=== PATIENT | male | born 1995 | race Native Hawaiian/Other Pacific Islander ===

== ENCOUNTER 2018-08-07 20:04 | Emergency (ER) | payer OTHER ==
[~2018-08-07] VITALS: Ht 160 cm; Wt 52.2 kg
[2018-08-07 20:13] VITALS: BP 125/88; TEMP 98.5
== END 2018-08-07 22:18 | disposition home or self-care (01) ==
LOC: ED 20:04
DX: K08.89 Other specified disorders of teeth and supporting structures (principal)
CPT/HCPCS: 99281

== ENCOUNTER 2018-09-09 16:54 | Emergency (ER) | payer OTHER ==
[~2018-09-09] VITALS: Ht 160 cm; Wt 52.2 kg
[2018-09-09 18:10] VITALS: BP 125/68; TEMP 98.3
== END 2018-09-09 18:10 | disposition home or self-care (01) ==
LOC: ED 16:54
DX: J02.9 Acute pharyngitis, unspecified (principal); H60.92 Unspecified otitis externa, left ear
CPT/HCPCS: 87651; 99282

== ENCOUNTER 2020-09-20 01:07 | Emergency (ER) | payer BC ==
[~2020-09-20] VITALS: Ht 160 cm; Wt 56.7 kg
[2020-09-20 03:50] VITALS: BP 127/77; TEMP 98.6
== END 2020-09-20 03:50 | disposition home or self-care (01) ==
LOC: ED 01:07
DX: S00.83XA Contusion of other part of head, initial encounter (principal); S10.83XA Contusion of other specified part of neck, initial encounter; S20.213A Contusion of bilateral front wall of thorax, initial encounter; Y04.8XXA Assault by other bodily force, initial encounter; Y92.828 Other wilderness area as the place of occurrence of the external cause
CPT/HCPCS: 99283; J1885